=== PATIENT | female | born 1990 | race Caucasian/White ===

== ENCOUNTER 2022-01-20 16:38 | Emergency (ER) | payer OTHER ==
[~2022-01-20] VITALS: Ht 152.4 cm; Wt 68.0 kg
[2022-01-20 17:10] VITALS: BP_SYST 138
--- NOTE | 2022-01-20 17:10 | NUR ---
Pt to remain in the ER lobby until an ER bed becomes available.
--- NOTE | 2022-01-20 17:20 | NUR ---
Pt AAO and ambulatory reporting bleeding X 4 days with heavy clots. Pt reports cramping and that she currently has fibroids. Pt reports large clots the past two days.
--- NOTE | 2022-01-20 17:22 | NUR ---
Dr. Coker to triage to assess.
[2022-01-20 18:03] LABS: BILIRUBIN,URINE NEGATIVE (NEGATIVE); BLOOD, URINE 2+ (NEGATIVE); CLARITY/URINE CLEAR (CLEAR); COLOR,URINE YELLOW (YELLOW); GLUCOSE,URINE NEGATIVE (NEGATIVE); KETONES,URINE NEGATIVE (NEGATIVE); LEUKOCYTE ESTERASE ,URINE NEGATIVE (NEGATIVE); NITRITE, URINE NEGATIVE (NEGATIVE); PROTEIN URINE NEGATIVE (NEGATIVE); UROBILINOGEN,URINE 0.2 (0.2-1.0)
--- NOTE | 2022-01-20 19:05 | NUR ---
Report given to SHAHLA Godyo who will assume care.
[2022-01-20 19:41] LABS: BACTERIA,URINE FEW /HPF (None Seen); MUCUS,URINE None Seen /LPF (None Seen); WBC,URINE 0-3 /HPF (0-3)
[2022-01-20] MEDS ORDERED: MEDR10TA72 PO (20:12)
--- NOTE | 2022-01-20 20:18 | NUR ---
Patient given written and verbal discharge instructions by Dr Coker in the [facility] and verbalizes understanding. ER MD discussed with patient the results and treatment provided. Patient in stable condition. ID arm band removed. Rx of Provera given. Patient educated on pain management and to follow up with PMD. Pain Scale 0/10. Opportunity for questions provided and answered. Medication side effect fact sheet provided.
[2022-01-20 20:20] VITALS: BP_SYST 129
== END 2022-01-20 20:20 | disposition home or self-care (01) ==
LOC: SED 16:38
DX: D25.9 Leiomyoma of uterus, unspecified (principal); Z88.0 Allergy status to penicillin
CPT/HCPCS: 76856-TC; 81000; 81025; 99284